=== PATIENT | male | born 1955 | race Caucasian/White ===

== ENCOUNTER 2017-09-15 06:23 | Day surgery (SDC) | payer OTHER ==
[~2017-09-15] VITALS: Ht 175.3 cm; Wt 89.4 kg
[~2017-09-15 06:23] MED LIST: ASPIRIN EC81 MG PO; COQ-10100 MG PO; DILAUDID4 MG PO; FISH OIL DR 1,1 EAC1 PO; HYDROXYZINE HCL25 MG PO; IMURAN50 MG PO; LISINOPRIL2.5 MG PO; METOPROLOL SUCC25 MG PO; MULTI VITAMIN1 EACH PO; NITROSTAT0.4 MG SL; OMEPRAZOLE20 MG PO; OXYCODONE HCL E10 MG PO; OXYCODONE HCL10 MG PO; PENICILLIN V P500 MG PO; PERCOCET 5-3251 EACH PO; PERCOCET 7.5-31 EACH PO; PRAVACHOL40 MG PO; PRAVACHOL80 MG PO; PREDNISONE2.5 MG PO; PREDNISONE5 MG; XARELTO10 MG PO
[2017-09-15] MEDS ORDERED: PREDNISONE2.5 MG PO (06:28)
[2017-09-15] MEDS ORDERED: ASPIRIN81 MG PO (06:29)
[2017-09-15] MEDS ORDERED: NITROSTAT0.4 MG SL (06:30)
--- NOTE | 2017-09-15 08:08 | NUR ---
[facility] 1L.
--- NOTE | 2017-09-29 07:49 | OR ---
[facility] [address], [place] [address] Signed DATE OF PROCEDURE: 09/15/17 PREOPERATIVE DIAGNOSES Persistent epigastric and left subcostal pain. History of laparoscopic cholecystectomy in 2014. POSTOPERATIVE DIAGNOSES Duodenitis and antral gastritis. Poor flap valve without obvious Crawford's epithelium and only mild esophagitis. PROCEDURE: Esophagogastroduodenoscopy with biopsy. SURGEON: Melyssa Palacios M.D. ANESTHESIA: Intravenous sedation, Fentanyl 100 mcg, Versed 3 mg. INDICATION This 62-year-old white man is patient of Dr. Finnegan and underwent laparoscopic cholecystectomy with ga, September 17, 2015. He was noted to have chronic cholecystitis. There were no gallstones. The patient is still having epigastric abdominal pain. Cholecystectomy was not completely curative to this issue. His pain begins in the morning, mostly epigastric and left subcostal. He is immunosuppressed related to renal transplant in 1987 and takes immunosuppressants including Prednisone daily. He does take Prilosec 40 mg daily, it is of uncertain benefit to him . He is admitted at this time to undergo upper endoscopy to better characterize the problem, understand the risks of bleeding, infection, and perforation. FINDINGS Esophagus showed only mild distal esophagitis. He had a poor flap valve. There was antral gastritis. No evidence of H. pylori. The duodenum had specifically crowded mucosa consistent with duodenitis, but no ulceration proper. Notably, there was bile within the stomach at the outset of procedure. DESCRIPTION OF PROCEDURE The patient was brought to the endoscopy suite and placed in lateral decubitus position after undergoing topical Hurricaine spray hypopharyngeal anesthesia. Intravenous sedation was given to point of slurred speech and nystagmus with full cardiopulmonary monitoring. Olympus video upper endoscope was passed in the hypopharynx. The vocal cords appeared normal. Scope was advanced to the esophagus without problem. Throughout its length, it was reasonably normal without sign of severe inflammation and no evidence of Crawford's epithelium. Scope was advanced to the stomach which showed some bilious fluid. This was suctioned free. Rugal folds appeared reasonably normal. Scope was passed to the Electronically Signed By: MELYSSA PALACIOS MD 09/29/17 0749 PATIENT NAME: FIOR DAVEY OPERATIVE REPORT DATE OF : 59 PHYSICIAN: MELYSSA PALACIOS MD REPORT #: [id number] REPORT IS CONFIDENTIAL AND NOT TO BE RELEASED WITHOUT AUTHORIZATION [facility] [address], [place] [address] Signed antrum, which showed mild inflammatory change, but no ulceration or erosion. Pylorus was normal. Scope was passed through into the duodenum. Immediately noted was redundant mucosa of the duodenum bulb and second portion consistent with duodenitis but no sign of erosion, bleeding, or ulceration proper. Biopsies were taken in the second and third and bulbar portions. The scope was withdrawn to the antrum, where biopsies were taken for both JASON and pathologic testing. Retroflexed view was undertaken showing any faced flap valve and small hiatal hernia. The scope was withdrawn to the distal esophagus where biopsies were obtained of the distal esophageal mucosa. Narrow band imaging showed no clear evidence of Crawford's epithelium. Further withdrawal of scope showed no other abnormalities. The patient was taken recovery room in good condition. Concluding diagnoses, antral gastritis and duodenitis. Hiatal hernia without associated severe esophagitis. Review of his record shows he underwent an upper GI January 20, 2016, confirming a hiatal hernia. Mildly restrictive Schatzki's ring, but no sign of esophagitis. At that time, rugal fold prominence and duodenal fold prominence were also found, but no evidence of ulcer seen and mild gastroesophageal reflux was noted. At this point, would recommend continued use of Prilosec 40 mg daily as he has been, this in particular since he takes Prednisone. We will add to his regimen Sucralfate 1 g p.o. q.i.d. on empty stomach. He will see us back in 4-6 weeks in follow-up. MD MEGHAN Walsh/Che /[id number] cc: Zhou Finnegan MD Electronically Signed By: MELYSSA PALACIOS MD 09/29/17 0749 PATIENT NAME: FIOR DAVEY OPERATIVE REPORT DATE OF : 59 PHYSICIAN: MELYSSA PALACIOS MD REPORT #: [id number] REPORT IS CONFIDENTIAL AND NOT TO BE RELEASED WITHOUT AUTHORIZATION
== END 2017-09-15 08:41 | disposition home or self-care (01) ==
LOC: OPS 06:23 → DS 06:23 → OPS 06:45 → DS 09:30 → OPS 09:30
PROVIDERS: Surgery
PROC: 0DB68ZX Excision of Stomach, Via Natural or Artificial Opening Endoscopic, Diagnostic (ICD-10-PCS; 2017-09-15)
PROC: 0DB38ZX Excision of Lower Esophagus, Via Natural or Artificial Opening Endoscopic, Diagnostic (ICD-10-PCS; 2017-09-15)
PROC: 0DB98ZX Excision of Duodenum, Via Natural or Artificial Opening Endoscopic, Diagnostic (ICD-10-PCS; principal; 2017-09-15 06:45)
DX: K29.50 Unspecified chronic gastritis without bleeding (principal); K20.9 Esophagitis, unspecified; K29.90 Gastroduodenitis, unspecified, without bleeding; K29.80 Duodenitis without bleeding; K44.9 Diaphragmatic hernia without obstruction or gangrene; I10 Essential (primary) hypertension; I25.2 Old myocardial infarction; N28.9 Disorder of kidney and ureter, unspecified; I25.10 Atherosclerotic heart disease of native coronary artery without angina pectoris; Z96.653 Presence of artificial knee joint, bilateral; Z90.49 Acquired absence of other specified parts of digestive tract; Z98.890 Other specified postprocedural states
CPT/HCPCS: 90674; 99152; 99153; G0008; J0690; J1720; J2250; J3010; J7120